=== PATIENT | male | born 1950 | race African-American/Black ===

== ENCOUNTER 2019-11-21 21:49 | Inpatient (IN) ==
[2019-11-21] MEDS ORDERED: SODIUM CHLORIDE 0.9% 1,000 ML IV SCH (22:30)
[2019-11-21 22:50] LABS: Basophils % 0.2 % (0.0-0.8); Eosinophils % 0.1 % (0.00-10.9); Hematocrit 37.8 VOL% (42.0-52.0); Hemoglobin 12.6 GM/DL (14.0-18.0); Immature Granulocytes % 0.5 %; Lymphocytes # 1.7 10*3/uL (1.4-4.0); Mean Corpuscular HGB Conc 33.3 GM/DL (32-36); Mean Corpuscular Volume 88.3 FL (87-102); Mean Platelet Volume 12.9 FL (9.6-12.0); Monocytes % 6.3 % (1.7-12.7); Neutrophils % 83.9 % (38.7-73.9); Platelet Count 128 T/CUMM (130-400); Red Blood Count 4.28 MC/CUMM (3.8-5.5); Red Cell Distribution Width 15.2 % (9.3-17.3); White Blood Count 18.9 T/CUMM (4-12)
[2019-11-21 23:11] LABS: Albumin 3.2 G/DL (3.4-5.0); Bilirubin,Total 1.5 MG/DL (0.2-1.0); Calcium 8.6 MG/DL (8.5-10.1); Osmolality,Calculated 276.8 MOS/KG (273-304)
[2019-11-21 23:43] LABS: Apearance,Urine CLEAR (Clear); Bilirubin,Urine Negative (Negative); Blood, Urine Small mg/dL (Negative); Glucose,Urine (UA) Negative (Negative); Ketones,Urine Negative (Negative); Mucus,Urine Occasional /LPF (Occasional); Nitrite,Urine Negative (Negative); Protein,Urine 100 MG/DL; RBC,Urine 3 /HPF (0-4); Squamous Epithelial Cell,Urine Occasional /HPF (0-10); Urine Color Yellow (Yellow); WBC,Urine 1 /HPF (0-6)
[2019-11-21] MEDS ORDERED: ONDANSETRON 4 MG/2 ML VIAL IV PRN (23:54)
[2019-11-21] MEDS ORDERED: ACETAMINOPHEN 325 MG TABLET PO PRN (23:54)
[2019-11-21] MEDS ORDERED: diphenhydrAMINE CAP 25 MG CAPSULE PO PRN (23:54)
[2019-11-21] MEDS ORDERED: DOCUSATE SODIUM 100 MG CAPSULE PO PRN (23:54)
[2019-11-21] MEDS ORDERED: PROMETHAZINE 25 MG TABLET PO PRN (23:54)
[2019-11-21] MEDS ORDERED: MORPHINE 4 MG/1 ML VIAL IV PRN (23:54)
[2019-11-21] MEDS ORDERED: ZALEPLON 5 MG CAPSULE PO PRN (23:54)
[2019-11-21] MEDS ORDERED: guaiFENesin/DM ER 600-30 MG TABLET PO PRN (23:54)
[2019-11-21] MEDS ORDERED: GLUCAGON 1 MG VIAL IM PRN (23:58)
[2019-11-21] MEDS ORDERED: DEXTROSE 50% 25 GM/50 ML SYRINGE IV PRN (23:58)
[2019-11-22] MEDS: metroNIDAZOLE INJ 500 MG in PREMIX 1 EACH IV SCH ×3 (00:51→16:37)
[2019-11-22] MEDS: SODIUM CHLORIDE 0.9% 1,000 ML IV SCH ×3 (04:28→14:40)
[2019-11-22] MEDS: PIPERACILLIN/TAZOBACTAM 3,375 MG in SODIUM CHLORIDE 0.9% 100 ML IV SCH ×3 (04:46→19:42)
[2019-11-22 05:12] LABS: Basophils % 0.2 % (0.0-0.8); Eosinophils # 0.1 10*3/uL (0.0-0.87); Eosinophils % 0.4 % (0.00-10.9); Hematocrit 34.9 VOL% (42.0-52.0); Hemoglobin 11.6 GM/DL (14.0-18.0); Immature Granulocytes % 0.7 %; Immature Granulocytes Absolute 0.12 #; Lymphocytes # 1.2 10*3/uL (1.4-4.0); Lymphocytes % 6.8 % (21.2-54.2); Mean Corpuscular HGB Conc 33.2 GM/DL (32-36); Mean Corpuscular Volume 88.4 FL (87-102); Mean Platelet Volume 13.4 FL (9.6-12.0); Monocytes % 6.5 % (1.7-12.7); Neutrophils % 85.4 % (38.7-73.9); Platelet Count 124 T/CUMM (130-400); Red Blood Count 3.95 MC/CUMM (3.8-5.5); Red Cell Distribution Width 14.9 % (9.3-17.3); White Blood Count 18.3 T/CUMM (4-12)
[2019-11-22 05:35] LABS: Calcium 8.3 MG/DL (8.5-10.1); Osmolality,Calculated 279.5 MOS/KG (273-304)
[2019-11-22] MEDS: INSULIN LISPRO 100 UNIT/ML SUBCUT SCH ×4 (09:25→21:49)
[2019-11-22] MEDS: POTASSIUM CHLORIDE RIDER 10 MEQ in PREMIX 1 EACH IV PRN ×3 (11:32→13:40)
[2019-11-22 12:37] LABS: Calcium 8.3 MG/DL (8.5-10.1); Osmolality,Calculated 283.3 MOS/KG (273-304)
[2019-11-22] MEDS: GABAPENTIN 300 MG CAPSULE PO SCH ×2 (14:39→21:45)
[2019-11-22] MEDS ORDERED: VANCOMYCIN INJ 1,750 MG in SODIUM CHLORIDE 0.9% 500 ML IV SCH (21:00)
[2019-11-22] MEDS: TAMSULOSIN 0.4 MG CAPSULE PO SCH (21:45)
[2019-11-22] MEDS: MEMANTINE 5 MG TABLET PO SCH (21:45)
[2019-11-23] MEDS ORDERED: cefTRIAXone 1,000 MG in SYRINGE 1 EACH IV SCH (00:30)
[2019-11-23] MEDS: metroNIDAZOLE INJ 500 MG in PREMIX 1 EACH IV SCH ×2 (01:32→10:26)
[2019-11-23 04:55] LABS: Basophils % 0.2 % (0.0-0.8); Eosinophils # 0.2 10*3/uL (0.0-0.87); Eosinophils % 1.7 % (0.00-10.9); Hematocrit 32.9 VOL% (42.0-52.0); Hemoglobin 11.1 GM/DL (14.0-18.0); Immature Granulocytes % 0.5 %; Immature Granulocytes Absolute 0.07 #; Lymphocytes # 1.7 10*3/uL (1.4-4.0); Lymphocytes % 12.9 % (21.2-54.2); Mean Corpuscular HGB Conc 33.7 GM/DL (32-36); Mean Platelet Volume 13.6 FL (9.6-12.0); Monocytes % 8.1 % (1.7-12.7); Neutrophils % 76.6 % (38.7-73.9); Platelet Count 142 T/CUMM (130-400); Red Blood Count 3.74 MC/CUMM (3.8-5.5); Red Cell Distribution Width 14.9 % (9.3-17.3); White Blood Count 12.8 T/CUMM (4-12)
[2019-11-23] MEDS: SODIUM CHLORIDE 0.9% 1,000 ML IV SCH ×2 (05:00→16:25)
[2019-11-23 05:10] LABS: Calcium 8.1 MG/DL (8.5-10.1); Osmolality,Calculated 282.1 MOS/KG (273-304)
[2019-11-23] MEDS: PIPERACILLIN/TAZOBACTAM 3,375 MG in SODIUM CHLORIDE 0.9% 100 ML IV SCH ×3 (05:27→22:01)
[2019-11-23] MEDS ORDERED: SODIUM CHLORIDE 0.9% 500 ML IV ONE (09:03)
[2019-11-23] MEDS: GABAPENTIN 300 MG CAPSULE PO SCH ×3 (09:03→22:03)
[2019-11-23] MEDS: INSULIN LISPRO 100 UNIT/ML SUBCUT SCH ×4 (10:21→22:03)
[2019-11-23] MEDS: LOSARTAN 50 MG TABLET PO SCH (15:02)
[2019-11-23] MEDS: buPROPion 100 MG TABLET PO SCH (15:03)
[2019-11-23] MEDS: TAMSULOSIN 0.4 MG CAPSULE PO SCH ×2 (15:04→22:04)
[2019-11-23] MEDS: amLODIPine 10 MG TABLET PO SCH (15:04)
[2019-11-23] MEDS: MEMANTINE 5 MG TABLET PO SCH ×2 (15:04→22:02)
[2019-11-23] MEDS: DOXAZOSIN 4 MG TABLET PO SCH (15:11)
[2019-11-23] MEDS: VANCOMYCIN INJ 1,750 MG in SODIUM CHLORIDE 0.9% 500 ML IV SCH (16:25)
[2019-11-23] MEDS ORDERED: BISACODYL 5 MG TABLET PO ONE (19:05)
[2019-11-24 05:21] LABS: Basophils % 0.3 % (0.0-0.8); Eosinophils # 0.3 10*3/uL (0.0-0.87); Eosinophils % 2.8 % (0.00-10.9); Hematocrit 36.3 VOL% (42.0-52.0); Hemoglobin 12.2 GM/DL (14.0-18.0); Immature Granulocytes % 0.6 %; Immature Granulocytes Absolute 0.05 #; Lymphocytes # 1.5 10*3/uL (1.4-4.0); Lymphocytes % 17.1 % (21.2-54.2); Mean Corpuscular HGB Conc 33.6 GM/DL (32-36); Mean Corpuscular Volume 86.2 FL (87-102); Monocytes % 8.6 % (1.7-12.7); Neutrophils % 70.6 % (38.7-73.9); Platelet Count 181 T/CUMM (130-400); Red Blood Count 4.21 MC/CUMM (3.8-5.5)
[2019-11-24] MEDS: PIPERACILLIN/TAZOBACTAM 3,375 MG in SODIUM CHLORIDE 0.9% 100 ML IV SCH ×3 (05:22→20:58)
[2019-11-24] MEDS: SODIUM CHLORIDE 0.9% 1,000 ML IV SCH ×3 (05:25→17:58)
[2019-11-24 05:48] LABS: Calcium 8.7 MG/DL (8.5-10.1); Osmolality,Calculated 275.7 MOS/KG (273-304)
[2019-11-24] MEDS: DOXAZOSIN 4 MG TABLET PO SCH (08:32)
[2019-11-24] MEDS: LOSARTAN 50 MG TABLET PO SCH (08:32)
[2019-11-24] MEDS: MEMANTINE 5 MG TABLET PO SCH ×2 (08:33→20:59)
[2019-11-24] MEDS: TAMSULOSIN 0.4 MG CAPSULE PO SCH ×2 (08:33→20:59)
[2019-11-24] MEDS: INSULIN LISPRO 100 UNIT/ML SUBCUT SCH ×4 (08:33→20:59)
[2019-11-24] MEDS: buPROPion 100 MG TABLET PO SCH (08:33)
[2019-11-24] MEDS: GABAPENTIN 300 MG CAPSULE PO SCH ×3 (08:33→20:59)
[2019-11-24] MEDS: amLODIPine 10 MG TABLET PO SCH (08:33)
[2019-11-24] MEDS: VANCOMYCIN INJ 1,750 MG in SODIUM CHLORIDE 0.9% 500 ML IV SCH (08:37)
[2019-11-24] MEDS: POTASSIUM CHLORIDE RIDER 10 MEQ in PREMIX 1 EACH IV PRN ×2 (09:45→11:46)
[2019-11-25] MEDS: SODIUM CHLORIDE 0.9% 1,000 ML IV SCH ×2 (03:46→12:55)
[2019-11-25] MEDS: VANCOMYCIN INJ 1,750 MG in SODIUM CHLORIDE 0.9% 500 ML IV SCH (03:46)
[2019-11-25] MEDS: PIPERACILLIN/TAZOBACTAM 3,375 MG in SODIUM CHLORIDE 0.9% 100 ML IV SCH ×2 (05:16→12:56)
[2019-11-25 06:29] LABS: Calcium 8.5 MG/DL (8.5-10.1); Osmolality,Calculated 274.5 MOS/KG (273-304)
[2019-11-25] MEDS: TAMSULOSIN 0.4 MG CAPSULE PO SCH ×2 (07:54→09:33)
[2019-11-25] MEDS: DOXAZOSIN 4 MG TABLET PO SCH ×2 (07:54→09:33)
[2019-11-25] MEDS: LOSARTAN 50 MG TABLET PO SCH ×2 (07:55→09:33)
[2019-11-25] MEDS: GABAPENTIN 300 MG CAPSULE PO SCH ×2 (07:55→09:33)
[2019-11-25] MEDS: MEMANTINE 5 MG TABLET PO SCH ×2 (07:55→09:33)
[2019-11-25] MEDS: amLODIPine 10 MG TABLET PO SCH ×2 (07:55→09:33)
[2019-11-25] MEDS: buPROPion 100 MG TABLET PO SCH ×2 (07:55→09:34)
[2019-11-25 07:57] VITALS: BP 135/70
[2019-11-25] MEDS: INSULIN LISPRO 100 UNIT/ML SUBCUT SCH ×2 (09:33→12:55)
== END 2019-11-25 13:36 | disposition home health service (06) | DRG 872 ==
LOC: N.ED 21:49 → N.EDINP 23:54 → SUATTDRO 23:54 → N.TELES 11-22 01:13
PROVIDERS: ADMIT Phlebology; ATTEND Internal Medicine

== ENCOUNTER 2020-04-13 07:30 | Inpatient (IN) ==
[2020-04-06 12:53] LABS: Basophils % 0.6 % (0.0-0.8); Eosinophils # 0.2 10*3/uL (0.0-0.87); Eosinophils % 2.9 % (0.00-10.9); Hematocrit 43.1 VOL% (42.0-52.0); Hemoglobin 14.1 GM/DL (14.0-18.0); Immature Granulocytes % 0.6 %; Immature Granulocytes Absolute 0.04 #; Lymphocytes # 2.7 10*3/uL (1.4-4.0); Lymphocytes % 39.8 % (21.2-54.2); Mean Corpuscular HGB Conc 32.7 GM/DL (32-36); Mean Corpuscular Volume 89.8 FL (87-102); Mean Platelet Volume 12.2 FL (9.6-12.0); Monocytes % 6.6 % (1.7-12.7); Neutrophils % 49.5 % (38.7-73.9); Platelet Count 159 T/CUMM (130-400); Red Cell Distribution Width 14.6 % (9.3-17.3); White Blood Count 6.7 T/CUMM (4-12)
[2020-04-06 13:19] LABS: Calcium 9.4 MG/DL (8.5-10.1); Osmolality,Calculated 275.7 MOS/KG (273-304)
[2020-04-14] MEDS ORDERED: PIPERACILLIN/TAZOBACTAM 3,375 MG in SODIUM CHLORIDE 0.9% 100 ML IV ONE (06:30)
[2020-04-14] MEDS ORDERED: LACTATED RINGERS 1,000 ML IV SCH (07:00)
[2020-04-14] MEDS ORDERED: PIPERACILLIN/TAZOBACTAM 3,375 MG VIAL IV ONE (07:04)
[2020-04-14] MEDS ORDERED: ALBUTEROL/IPRATROPIUM 3 ML NEB RESP TX PRN (09:18)
[2020-04-14] MEDS ORDERED: ONDANSETRON 4 MG/2 ML VIAL IV PRN ×2 (09:18→09:24)
[2020-04-14] MEDS ORDERED: KETOROLAC 15 MG/1 ML VIAL IV PRN (09:18)
[2020-04-14] MEDS ORDERED: ACETAMINOPHEN 325 MG TABLET PO PRN (09:18)
[2020-04-14 09:27] LABS: Apearance,Urine CLEAR (Clear); Bacteria,Urine Occasional /HPF (Few); Bilirubin,Urine Negative (Negative); Blood, Urine Negative (Negative); Glucose,Urine (UA) Negative (Negative); Ketones,Urine Negative (Negative); Mucus,Urine Occasional /LPF (Occasional); Nitrite,Urine Negative (Negative); Protein,Urine 100 MG/DL; RBC,Urine <1 /HPF (0-4); Squamous Epithelial Cell,Urine Occasional /HPF (0-10); Urine Color Yellow (Yellow); Urine Specific Gravity 1.012 (1.001-1.035); Urine Urobilinogen < 2.0 EU/DL (0.2-1.0); WBC,Urine 1 /HPF (0-6)
[2020-04-14] MEDS ORDERED: propofoL 200 MG/20 ML VIAL IV ONE (09:29)
[2020-04-14] MEDS ORDERED: LIDOCAINE 2% 5 ML VIAL ONE (09:29)
[2020-04-14] MEDS ORDERED: PHENYLEPHRINE DRIP 20 MG/250 ML PREMIX IV ONE (09:29)
[2020-04-14] MEDS ORDERED: fentaNYL 100 MCG/2 ML VIAL ONE (09:30)
[2020-04-14] MEDS ORDERED: ROCURONIUM 100 MG/10 ML VIAL IV ONE (09:30)
[2020-04-14] MEDS ORDERED: PHENYLEPHRINE 1 MG/10 ML SYRINGE IV ONE (09:30)
[2020-04-14] MEDS ORDERED: LACTATED RINGERS 1,000 ML IV ONE (09:30)
[2020-04-14] MEDS ORDERED: GLYCOPYRROLATE 0.4 MG/2 ML VIAL ONE (09:30)
[2020-04-14] MEDS ORDERED: SEVOFLURANE 1 UNIT/15 MINUTE INH ONE (09:30)
[2020-04-14] MEDS ORDERED: ETOMIDATE 40 MG/20 ML VIAL IV ONE (09:30)
[2020-04-14] MEDS ORDERED: NEOSTIGMINE 10 MG/10 ML VIAL ONE (09:30)
[2020-04-14] MEDS: HYDROmorphone 2 MG/1 ML VIAL IV PRN ×6 (09:34→23:45)
[2020-04-14] MEDS ORDERED: BUPIVACAINE MPF 0.5% /EPI 30 ML VIAL ONE (11:22)
[2020-04-14] MEDS: METOCLOPRAMIDE 10 MG/2 ML VIAL IV SCH ×2 (12:40→17:54)
[2020-04-14] MEDS: cefOXitin 2,000 MG in SYRINGE 1 EACH IV SCH ×2 (12:43→19:14)
[2020-04-14] MEDS: LACTATED RINGERS 1,000 ML IV SCH ×2 (12:45→20:14)
[2020-04-14] MEDS: ALVIMOPAN 12 MG CAPSULE PO SCH (22:56)
[2020-04-14] MEDS: TAMSULOSIN 0.4 MG CAPSULE PO SCH (22:57)
[2020-04-14] MEDS: GABAPENTIN 300 MG CAPSULE PO SCH (22:59)
[2020-04-15] MEDS: METOCLOPRAMIDE 10 MG/2 ML VIAL IV SCH ×4 (01:03→18:05)
[2020-04-15] MEDS: cefOXitin 2,000 MG in SYRINGE 1 EACH IV SCH (01:06)
[2020-04-15] MEDS: HYDROmorphone 2 MG/1 ML VIAL IV PRN ×3 (02:57→18:08)
[2020-04-15] MEDS: LACTATED RINGERS 1,000 ML IV SCH ×3 (03:45→19:50)
[2020-04-15 04:53] LABS: Basophils % 0.3 % (0.0-0.8); Eosinophils % 0.3 % (0.00-10.9); Hematocrit 40.4 VOL% (42.0-52.0); Hemoglobin 13.3 GM/DL (14.0-18.0); Immature Granulocytes % 0.4 %; Immature Granulocytes Absolute 0.04 #; Lymphocytes # 0.9 10*3/uL (1.4-4.0); Lymphocytes % 8.8 % (21.2-54.2); Mean Corpuscular HGB Conc 32.9 GM/DL (32-36); Mean Corpuscular Volume 87.8 FL (87-102); Neutrophils % 84.2 % (38.7-73.9); Platelet Count 161 T/CUMM (130-400); White Blood Count 10.1 T/CUMM (4-12)
[2020-04-15 05:24] LABS: Calcium 8.7 MG/DL (8.5-10.1)
[2020-04-15] MEDS ORDERED: QUEtiapine 25 MG TABLET PO SCH (09:00)
[2020-04-15] MEDS ORDERED: buPROPion 100 MG TABLET PO SCH (09:00)
[2020-04-15] MEDS: DOXAZOSIN 4 MG TABLET PO SCH (09:20)
[2020-04-15] MEDS: ALVIMOPAN 12 MG CAPSULE PO SCH ×2 (09:20→21:05)
[2020-04-15] MEDS: TAMSULOSIN 0.4 MG CAPSULE PO SCH ×2 (09:20→21:05)
[2020-04-15] MEDS: LOSARTAN 50 MG TABLET PO SCH (09:20)
[2020-04-15] MEDS: amLODIPine 10 MG TABLET PO SCH (09:20)
[2020-04-15] MEDS: PANTOPRAZOLE 40 MG VIAL IV SCH (09:21)
[2020-04-15] MEDS: ENOXAPARIN 40 MG/0.4 ML SYRINGE SUBCUT SCH (11:00)
[2020-04-15] MEDS ORDERED: TUBERCULIN SKIN TEST 0.1 ML SYRINGE INTRADERM ONE (14:41)
[2020-04-15] MEDS: GABAPENTIN 300 MG CAPSULE PO SCH (21:05)
[2020-04-16] MEDS: METOCLOPRAMIDE 10 MG/2 ML VIAL IV SCH ×5 (00:01→23:42)
[2020-04-16] MEDS: LACTATED RINGERS 1,000 ML IV SCH (04:06)
[2020-04-16 06:32] LABS: Calcium 9.1 MG/DL (8.5-10.1); Osmolality,Calculated 270.1 MOS/KG (273-304)
[2020-04-16] MEDS: PANTOPRAZOLE 40 MG VIAL IV SCH (09:29)
[2020-04-16] MEDS: LOSARTAN 50 MG TABLET PO SCH (09:30)
[2020-04-16] MEDS: TAMSULOSIN 0.4 MG CAPSULE PO SCH ×2 (09:30→20:58)
[2020-04-16] MEDS: amLODIPine 10 MG TABLET PO SCH (09:30)
[2020-04-16] MEDS: ALVIMOPAN 12 MG CAPSULE PO SCH ×2 (09:30→20:58)
[2020-04-16] MEDS: ENOXAPARIN 40 MG/0.4 ML SYRINGE SUBCUT SCH (09:31)
[2020-04-16] MEDS: DOXAZOSIN 4 MG TABLET PO SCH (09:31)
[2020-04-16] MEDS: DEXT 5% NACL 0.45% KCL 20 MEQ 20 MEQ/1,000 ML BAG IV SCH (11:16)
[2020-04-16] MEDS: GABAPENTIN 300 MG CAPSULE PO SCH (20:58)
[2020-04-17] MEDS: METOCLOPRAMIDE 10 MG/2 ML VIAL IV SCH ×4 (05:39→23:37)
[2020-04-17] MEDS: DEXT 5% NACL 0.45% KCL 20 MEQ 20 MEQ/1,000 ML BAG IV SCH (06:54)
[2020-04-17] MEDS: ALVIMOPAN 12 MG CAPSULE PO SCH ×2 (09:15→20:50)
[2020-04-17] MEDS: TAMSULOSIN 0.4 MG CAPSULE PO SCH ×2 (09:15→20:50)
[2020-04-17] MEDS: LOSARTAN 50 MG TABLET PO SCH (09:15)
[2020-04-17] MEDS: DOXAZOSIN 4 MG TABLET PO SCH (09:15)
[2020-04-17] MEDS: amLODIPine 10 MG TABLET PO SCH (09:15)
[2020-04-17] MEDS: ENOXAPARIN 40 MG/0.4 ML SYRINGE SUBCUT SCH (09:16)
[2020-04-17] MEDS: PANTOPRAZOLE 40 MG VIAL IV SCH (09:16)
[2020-04-17] MEDS: HYDROmorphone 2 MG/1 ML VIAL IV PRN ×2 (14:23→17:06)
[2020-04-17] MEDS: GABAPENTIN 300 MG CAPSULE PO SCH (20:50)
[2020-04-17] MEDS: CALCIUM CARBONATE CHEW 500 MG TABLET PO PRN (20:51)
[2020-04-18] MEDS: METOCLOPRAMIDE 10 MG/2 ML VIAL IV SCH ×4 (06:03→23:23)
[2020-04-18] MEDS: HYDROmorphone 2 MG/1 ML VIAL IV PRN ×2 (07:50→15:38)
[2020-04-18] MEDS: BISACODYL 10 MG SUPP RECTAL SCH ×2 (11:14→22:24)
[2020-04-18] MEDS: LOSARTAN 50 MG TABLET PO SCH (11:14)
[2020-04-18] MEDS: TAMSULOSIN 0.4 MG CAPSULE PO SCH ×2 (11:14→22:24)
[2020-04-18] MEDS: ALVIMOPAN 12 MG CAPSULE PO SCH ×2 (11:14→22:24)
[2020-04-18] MEDS: amLODIPine 10 MG TABLET PO SCH (11:15)
[2020-04-18] MEDS: DOXAZOSIN 4 MG TABLET PO SCH (11:15)
[2020-04-18] MEDS: DOCUSATE SODIUM 100 MG CAPSULE PO SCH ×2 (11:15→22:23)
[2020-04-18] MEDS: PANTOPRAZOLE 40 MG VIAL IV SCH (11:15)
[2020-04-18] MEDS: ENOXAPARIN 40 MG/0.4 ML SYRINGE SUBCUT SCH (11:24)
[2020-04-18] MEDS: CALCIUM CARBONATE CHEW 500 MG TABLET PO PRN (17:48)
[2020-04-18] MEDS: GABAPENTIN 300 MG CAPSULE PO SCH (22:24)
[2020-04-19 05:20] LABS: Basophils % 0.5 % (0.0-0.8); Eosinophils # 0.3 10*3/uL (0.0-0.87); Eosinophils % 5.5 % (0.00-10.9); Hematocrit 32.7 VOL% (42.0-52.0); Immature Granulocytes % 0.7 %; Immature Granulocytes Absolute 0.04 #; Lymphocytes # 1.3 10*3/uL (1.4-4.0); Lymphocytes % 21.1 % (21.2-54.2); Mean Corpuscular HGB Conc 33.6 GM/DL (32-36); Mean Corpuscular Volume 86.7 FL (87-102); Mean Platelet Volume 12.6 FL (9.6-12.0); Monocytes % 8.7 % (1.7-12.7); Neutrophils % 63.5 % (38.7-73.9); Platelet Count 201 T/CUMM (130-400); Red Blood Count 3.77 MC/CUMM (3.8-5.5)
[2020-04-19] MEDS: METOCLOPRAMIDE 10 MG/2 ML VIAL IV SCH ×2 (05:50→11:13)
[2020-04-19 05:54] LABS: Calcium 8.8 MG/DL (8.5-10.1)
[2020-04-19] MEDS: HYDROmorphone 2 MG/1 ML VIAL IV PRN (08:14)
[2020-04-19] MEDS: DOXAZOSIN 4 MG TABLET PO SCH (08:15)
[2020-04-19] MEDS: TAMSULOSIN 0.4 MG CAPSULE PO SCH (08:15)
[2020-04-19] MEDS: PANTOPRAZOLE 40 MG VIAL IV SCH (08:15)
[2020-04-19] MEDS: ALVIMOPAN 12 MG CAPSULE PO SCH (08:16)
[2020-04-19] MEDS: LOSARTAN 50 MG TABLET PO SCH (08:16)
[2020-04-19] MEDS: DOCUSATE SODIUM 100 MG CAPSULE PO SCH (08:17)
[2020-04-19] MEDS: amLODIPine 10 MG TABLET PO SCH (08:17)
[2020-04-19] MEDS: ENOXAPARIN 40 MG/0.4 ML SYRINGE SUBCUT SCH (09:03)
[2020-04-19] MEDS: BISACODYL 10 MG SUPP RECTAL SCH (09:03)
[2020-04-19 11:18] VITALS: BP 136/73
== END 2020-04-19 11:55 | disposition swing bed (61) | DRG 330 ==
LOC: N.SDSINP 04-14 06:15 → N.3E 04-14 10:20
PROVIDERS: ADMIT Surgery; ATTEND Surgery

== ENCOUNTER 2020-05-10 17:43 | Observation (INO) ==
[2020-05-10] MEDS ORDERED: ONDANSETRON 4 MG/2 ML VIAL IV STA (18:28)
[2020-05-10] MEDS ORDERED: HYDROmorphone 2 MG/1 ML VIAL IV STA (18:28)
[2020-05-10] MEDS ORDERED: SODIUM CHLORIDE 0.9% 500 ML IV STA (18:28)
[2020-05-10] MEDS ORDERED: PANTOPRAZOLE 40 MG VIAL IV STA (18:28)
[2020-05-10 18:52] LABS: Basophils % 0.4 % (0.0-0.8); Eosinophils # 0.3 10*3/uL (0.0-0.87); Eosinophils % 4.3 % (0.00-10.9); Hematocrit 37.5 VOL% (42.0-52.0); Hemoglobin 11.9 GM/DL (14.0-18.0); Immature Granulocytes % 0.9 %; Immature Granulocytes Absolute 0.06 #; Lymphocytes # 2.2 10*3/uL (1.4-4.0); Lymphocytes % 31.5 % (21.2-54.2); Mean Corpuscular HGB Conc 31.7 GM/DL (32-36); Mean Corpuscular Volume 88.9 FL (87-102); Mean Platelet Volume 12.3 FL (9.6-12.0); Neutrophils % 55.9 % (38.7-73.9); Platelet Count 242 T/CUMM (130-400); Red Blood Count 4.22 MC/CUMM (3.8-5.5); Red Cell Distribution Width 14.8 % (9.3-17.3)
[2020-05-10 19:08] LABS: Albumin 3.7 G/DL (3.4-5.0); Bilirubin,Total 0.4 MG/DL (0.2-1.0); Calcium 9.6 MG/DL (8.5-10.1); Total Protein 8.3 G/DL (6.4-8.3)
[2020-05-10] MEDS ORDERED: PIPERACILLIN/TAZOBACTAM 3,375 MG in SODIUM CHLORIDE 0.9% 100 ML IV STA (19:34)
[2020-05-10] MEDS ORDERED: PIPERACILLIN/TAZOBACTAM 3,375 MG VIAL IV ONE (20:19)
[2020-05-10 20:39] LABS: Anisocytosis Slight; Eosinophils 1 % (0-10); Hypochromasia 1+; Lymphocytes 33 % (20-55); Microcytosis Slight; Myelocytes 1 %; Segmented Neutrophils 60 % (50-85); Total Cells Counted 100
[2020-05-10 20:40] LABS: Polychromasia Slight
[2020-05-10 20:41] LABS: Platelet Estimate Normal
[2020-05-10 20:42] LABS: Reactive Lymphocytes 1+
[2020-05-10 20:57] LABS: Apearance,Urine CLOUDY (Clear); Bacteria,Urine Moderate /HPF (Few); Bilirubin,Urine Negative (Negative); Blood, Urine Negative (Negative); Glucose,Urine (UA) Negative (Negative); Ketones,Urine Negative (Negative); Nitrite,Urine Negative (Negative); Protein,Urine 30 MG/DL; Urine Color Yellow (Yellow); Urine Specific Gravity 1.024 (1.001-1.035); Urine Urobilinogen < 2.0 EU/DL (0.2-1.0)
[2020-05-10] MEDS ORDERED: ONDANSETRON 4 MG/2 ML VIAL IV PRN (23:27)
[2020-05-10] MEDS ORDERED: ACETAMINOPHEN 325 MG TABLET PO PRN (23:27)
[2020-05-10] MEDS ORDERED: HYDROmorphone 2 MG/1 ML VIAL IV PRN (23:27)
[2020-05-11] MEDS: SODIUM CHLORIDE 0.9% 1,000 ML IV SCH ×2 (01:49→08:06)
[2020-05-11 06:07] LABS: Basophils % 0.6 % (0.0-0.8); Eosinophils # 0.4 10*3/uL (0.0-0.87); Eosinophils % 5.4 % (0.00-10.9); Hematocrit 35.6 VOL% (42.0-52.0); Hemoglobin 11.8 GM/DL (14.0-18.0); Immature Granulocytes % 0.8 %; Immature Granulocytes Absolute 0.05 #; Lymphocytes # 2.1 10*3/uL (1.4-4.0); Lymphocytes % 31.3 % (21.2-54.2); Mean Corpuscular HGB Conc 33.1 GM/DL (32-36); Mean Corpuscular Volume 87.9 FL (87-102); Mean Platelet Volume 12.6 FL (9.6-12.0); Neutrophils % 53.9 % (38.7-73.9); Platelet Count 236 T/CUMM (130-400); Red Blood Count 4.05 MC/CUMM (3.8-5.5); Red Cell Distribution Width 14.9 % (9.3-17.3); White Blood Count 6.5 T/CUMM (4-12)
[2020-05-11 06:20] LABS: Albumin 3.3 G/DL (3.4-5.0); Bilirubin,Total 0.4 MG/DL (0.2-1.0); Calcium 8.7 MG/DL (8.5-10.1); Osmolality,Calculated 270.8 MOS/KG (273-304); Total Protein 7.4 G/DL (6.4-8.3)
[2020-05-11] MEDS: PIPERACILLIN/TAZOBACTAM 3,375 MG in SODIUM CHLORIDE 0.9% 100 ML IV SCH ×3 (07:55→23:26)
[2020-05-11] MEDS ORDERED: PANTOPRAZOLE 40 MG VIAL IV ONE (09:24)
[2020-05-11] MEDS: PANTOPRAZOLE 40 MG VIAL IV SCH (09:28)
[2020-05-12] MEDS: SODIUM CHLORIDE 0.9% 1,000 ML IV SCH ×2 (07:37→08:32)
[2020-05-12] MEDS: PANTOPRAZOLE 40 MG VIAL IV SCH (08:33)
[2020-05-12] MEDS: PIPERACILLIN/TAZOBACTAM 3,375 MG in SODIUM CHLORIDE 0.9% 100 ML IV SCH ×2 (08:33→16:10)
[2020-05-12 16:48] VITALS: BP 162/89
== END 2020-05-12 19:24 | disposition home or self-care (01) ==
LOC: N.EDINP 17:43 → N.ED 17:43 → N.3E 05-11 15:31
PROVIDERS: ADMIT Student in an Organized Health Care Education/Training Program; ATTEND Student in an Organized Health Care Education/Training Program